=== PATIENT | male | born 1980 | race Caucasian/White ===

== ENCOUNTER 2020-05-21 13:41 | Emergency (ER) | payer OTHER, SELFPAY ==
[2020-05-21 13:45] VITALS: BP 134/90; PULSE 94; RESP 20; TEMP 36.8; O2SAT 95
--- NOTE | 2020-05-21 13:56 | ED.EAR ---
HPI - Ear Problem General Chief complaint: Ear Stated complaint: severe right ear pain and cant hear Source: patient and RN notes reviewed Mode of arrival: ambulatory Limitations: no limitations History of Present Illness HPI Narrative: patient states he has been gradually having loss of hearing and pain in his right ear. He had does not recall any trauma or any recent water activities. He denies any fever chills. He denies being diabetic. MD Complaint: ear pain and decreased hearing Location: right ear Duration: constant Severity: moderate Relieving factors: nothing Exacerbating factors: nothing Discharge from ear: Reports no Associated symptoms ear: decreased hearing Related Data Allergies Allergy/AdvReac Type Severity Reaction Status Date / Time tomato Allergy Unknown Rash Verified 06/14/19 21:39 tramadol Allergy Unknown Verified 06/14/19 21:39 Honey Bee Allergy Unknown Uncoded 06/14/19 21:39 Review of Systems Review of Systems: All systems reviewed & are unremarkable except as noted in HPI and below PMFSH Past Medical History Medical History (Updated 05/21/20 @ 14:14 by Lucas Sanderson MD) Hypertension Surgical History Surgical History (Updated 05/21/20 @ 13:57 by Lucas Sanderson MD) No pertinent past surgical history Social History Social History (Updated 05/21/20 @ 13:57 by Lucas Sanderson MD) Smoking status: Never smoker Alcohol intake: never Substance use: never Exam Const: General: healthy appearing, no acute distress and alert Nutritional Appearance: well nourished and obese morbidly obese Orientation/consciousness: patient oriented x3 HENMT: Ears: Abnormal EAC present erythema on the right and localized, edema on the right and diffuse and EAC tenderness on the right and localized; no otic discharge and TM abnormal ( Unable to visualize right TM due to swelling) Eyes: Conjunctivae: conjunctivae normal Pupils: Equal, round and reactive pupils present EOM: EOMs intact bilaterally Resp: Effort & Inspection: normal respiratory effort Auscultation: clear to auscultation bilaterally Cardio: Rate: regular rate Rhythm: regular rhythm GI: Auscultation: normal bowel sounds Back/Spine/Pelvis: Cervical Spine: cervical ROM normal Thoracic/Lumbar Spine: thoraco-lumbar ROM normal Skin: General skin exam: normal color Rashes: no rashes Neuro: General: patient oriented x3, moves all extremities and no focal motor deficits Speech: normal speech Gait exam (Neuro): Normal gait present Extrem: General: normal to inspection Psych: Appearance: grossly normal and well kempt Mental Status: mental status grossly normal Affect: normal affect Attitude: cooperative Thought content: Yes Normal thought content present Course Course Emergency Course: Ear wick is placed in the right ear and then antibiotic drops. Patient advised take the ear wick out and 24 hours. Continue drops for 7 days TID. Vital Signs Vital signs: Vital Signs Temperature 36.8 C 05/21/20 13:45 Pulse Rate 94 05/21/20 13:45 Respiratory Rate 20 05/21/20 13:45 Blood Pressure 134/90 05/21/20 13:45 Pulse Oximetry 95 05/21/20 13:45 Temperature 36.8 C 05/21/20 13:45 Pulse Rate 94 05/21/20 13:45 Respiratory Rate 17 05/21/20 14:18 Blood Pressure 134/90 05/21/20 13:45 Pulse Oximetry 95 05/21/20 13:45 Medical Decision Making Vital Signs Vital Signs: Vital Signs Temperature 36.8 C 05/21/20 13:45 Pulse Rate 94 05/21/20 13:45 Respiratory Rate 20 05/21/20 13:45 Blood Pressure 134/90 05/21/20 13:45 Pulse Oximetry 95 05/21/20 13:45 Temperature 36.8 C 05/21/20 13:45 Pulse Rate 94 05/21/20 13:45 Respiratory Rate 17 05/21/20 14:18 Blood Pressure 134/90 05/21/20 13:45 Pulse Oximetry 95 05/21/20 13:45 Discharge Plan Discharge Clinical Impression: Otitis externa Qualifiers: Otitis externa type: diffuse Chronicity: acute Laterality: right Qualified
[2020-05-21] MEDS: POLYMYX RIGHT EAR (14:10)
[2020-05-21] MEDS: NEOMYCIN RIGHT EAR (14:10)
[2020-05-21] MEDS: [UNRECOGNIZED DRUG - OTHER] RIGHT EAR (14:10)
[2020-05-21 14:18] VITALS: RESP 17
== END 2020-05-21 14:18 | disposition home or self-care (01) ==
PROVIDERS: Emergency Provider Emergency Medicine
DX: H60.311 Diffuse otitis externa, right ear (principal)
CPT/HCPCS: 99282; 99283; A9270